=== PATIENT | female | born 1980 | race Caucasian/White ===

== ENCOUNTER 2016-10-29 18:46 | Emergency (ER) | payer MEDICAID ==
[~2016-10-29] VITALS: Ht 160 cm; Wt 68.0 kg
[2016-10-29 18:50] VITALS: BP_SYST 139
[2016-10-29] MEDS ORDERED: NACL 0.9% 1,000 ML IV ONE (19:00)
[2016-10-29] MEDS ORDERED: LORazepam 2 MG/ML VIAL IVP ONE (19:30)
[2016-10-29 19:36] LABS: BASOPHILS # (AUTO) 0.1 K/uL (0.0-0.2); BASOPHILS % (AUTO) 0.7 % (0.0-2.0); EOSINOPHILS # (AUTO) 0.2 K/uL (0.0-0.4); EOSINOPHILS % (AUTO) 2.4 % (0.0-4.0); HEMATOCRIT 42.4 % (36-48); HEMOGLOBIN 13.8 g/dL (12.0-16.0); LYMPHOCYTES # (AUTO) 2.6 K/uL (1.0-5.5); LYMPHOCYTES % (AUTO) 33.8 % (20.5-51.5); MEAN CORPUSCULAR HEMOGLOBIN 27 pg (27-31); MEAN CORPUSCULAR HGB CONC 32 % (32-36); MEAN CORPUSCULAR VOLUME 84 fL (79.0-98.0); MONOCYTES # (AUTO) 0.4 K/uL (0.0-1.0); MONOCYTES % (AUTO) 5.2 % (1.7-9.3); NEUTROPHILS # (AUTO) 4.3 K/uL (1.8-7.7); NEUTROPHILS % (AUTO) 57.9 % (40.0-70.0); PLATELET COUNT (AUTO) 307 K/uL (130-430); RED BLOOD CELL COUNT(AUTO) 5.07 MIL/uL (4.2-6.2); RED CELL DISTRIBUTION WIDTH 12.4 % (9.0-15.0); WHITE BLOOD COUNT (AUTO) 7.6 K/uL (4.8-10.8)
[2016-10-29] MEDS ORDERED: LORazepam 2 MG/ML VIAL (FOR ER USE) ONE (19:45)
[2016-10-29 19:58] LABS: BILIRUBIN,URINE NEGATIVE (NEGATIVE); BLOOD, URINE NEGATIVE (NEGATIVE); CLARITY/URINE CLEAR (CLEAR); COLOR,URINE YELLOW (YELLOW); GLUCOSE,URINE TRACE (NEGATIVE); KETONES,URINE NEGATIVE (NEGATIVE); LEUKOCYTE ESTERASE ,URINE 1+ (NEGATIVE); NITRITE, URINE NEGATIVE (NEGATIVE); PH,URINE 6.5 (5.0-8.0); PROTEIN URINE NEGATIVE (NEGATIVE); UROBILINOGEN,URINE 0.2 (0.2-1.0)
[2016-10-29 20:02] LABS: CALCIUM 9.8 mg/dL (8.4-11.0); CREATININE 0.94 mg/dL (0.55-1.30); POTASSIUM 3.3 mmol/L (3.5-5.1)
[2016-10-29 20:07] LABS: ALBUMIN 4.8 g/dL (3.4-4.8); TOTAL BILIRUBIN 0.2 mg/dL (0.0-1.0); TOTAL PROTEIN, SERUM 8.8 g/dL (6.4-8.3)
[2016-10-29 20:17] LABS: BACTERIA,URINE MODERATE /HPF (None Seen); RBC,URINE 0-3 /HPF (0-3)
[2016-10-29] MEDS ORDERED: KETOROLAC TROMETHAMINE 30 MG VIAL IVP ONE (20:30)
[2016-10-29] MEDS ORDERED: POTASSIUM CHLORIDE 10 MEQ TAB.PRT.SR PO ONE (20:30)
[2016-10-29 21:11] VITALS: BP_SYST 125
== END 2016-10-29 21:11 | disposition home or self-care (01) ==
LOC: SED 18:46
DX: R51 Headache (principal); R20.2 Paresthesia of skin; F41.9 Anxiety disorder, unspecified
CPT/HCPCS: 36415; 70450; 71010; 80053; 81000; 81025; 83605; 84484; 85025; 87040; 87086; 93005; 96361; 96374; 96375; 99285; J1885; J2060; J7030; 87186-TC

== ENCOUNTER 2020-06-18 11:54 | Emergency (ER) | payer MEDICAID, SELFPAY ==
[~2020-06-18] VITALS: Ht 160 cm; Wt 68.0 kg
[2020-06-18 11:55] VITALS: BP_SYST 99
[2020-06-18 13:15] VITALS: BP_SYST 99
== END 2020-06-18 13:15 | disposition home or self-care (01) ==
LOC: SED 11:54
DX: U07.1 COVID-19 (principal); M79.18 Myalgia, other site
CPT/HCPCS: 71045; 99284; C9803; U0003

== ENCOUNTER 2021-06-26 10:18 | Emergency (ER) | payer MEDICAID, SELFPAY ==
[~2021-06-26] VITALS: Ht 162.6 cm; Wt 83.9 kg
[2021-06-26 10:43] VITALS: BP_SYST 123
--- NOTE | 2021-06-26 10:43 | NUR ---
pt. came in with right sided abd pain, N/V, since friday and now has MENCHACA, rates pain 02/02, states can not keep anything down
--- NOTE | 2021-06-26 10:45 | NUR ---
ER in triage examining patient.
--- NOTE | 2021-06-26 10:55 | NUR ---
Patient to ER bed 7 to gown for evaluation. Side rails up. Report given to Trinh.
[2021-06-26] MEDS ORDERED: ONDANSETRON 4 MG ODT TAB PO ONE (11:00)
[2021-06-26] MEDS ORDERED: KETOROLAC TROMETHAMINE 60 MG/2 ML VIAL IM ONE (11:00)
--- NOTE | 2021-06-26 11:24 | NUR ---
PT A/OX4 AMBULATORY C/O R SIDE ABD PAIN RATED 9/10,N/V, since friday and now has MENCHACA. PT SEEN BY ED MD AND GAVE ORDERS. PT MEDICATED STAT, URINE DIP RESULTED, NEG. P
--- NOTE | 2021-06-26 11:26 | NUR ---
[address] SCAN
[2021-06-26 11:36] LABS: BASOPHILS # (AUTO) 0.1 K/uL (0.0-0.2); BASOPHILS % (AUTO) 0.6 % (0.0-2.0); EOSINOPHILS # (AUTO) 0.1 K/uL (0.0-0.4); EOSINOPHILS % (AUTO) 1.4 % (0.0-4.0); HEMATOCRIT 42.5 % (36-48); HEMOGLOBIN 14.5 g/dL (12.0-16.0); LYMPHOCYTES # (AUTO) 2.7 K/uL (1.0-5.5); LYMPHOCYTES % (AUTO) 26.8 % (20.5-51.5); MEAN CORPUSCULAR HEMOGLOBIN 29 pg (27-31); MEAN CORPUSCULAR HGB CONC 34 % (32-36); MEAN CORPUSCULAR VOLUME 86 fL (79.0-98.0); MONOCYTES # (AUTO) 0.4 K/uL (0.0-1.0); MONOCYTES % (AUTO) 4.4 % (1.7-9.3); NEUTROPHILS # (AUTO) 6.6 K/uL (1.8-7.7); NEUTROPHILS % (AUTO) 66.8 % (40.0-70.0); PLATELET COUNT (AUTO) 317 K/uL (130-430); RED BLOOD CELL COUNT(AUTO) 4.95 MIL/uL (4.2-6.2); RED CELL DISTRIBUTION WIDTH 12.8 % (9.0-15.0)
[2021-06-26 12:07] LABS: CALCIUM 8.5 mg/dL (8.4-11.0); CREATININE 0.66 mg/dL (0.55-1.30)
[2021-06-26 12:30] LABS: ALBUMIN 3.7 g/dL (3.4-4.8); TOTAL BILIRUBIN 0.3 mg/dL (0.0-1.0)
[2021-06-26 12:54] LABS: C-REACTIVE PROTEIN QUANT 0.2 mg/dL (0-0.5)
[2021-06-26] MEDS ORDERED: ONDA-8 TL (13:53)
[2021-06-26] MEDS ORDERED: IBUP-1969 PO (13:53)
--- NOTE | 2021-06-26 14:30 | NUR ---
PT REASSESSED BY ED MD AND CLERED TO BE DC HOME. PT VSS , NO PAIN , A/OX4 AMBULATORY, ACI AND RX PROVIDED AND EXPLAINED, PT VERB UNDERSTANDING.
[2021-06-26 16:26] VITALS: BP_SYST 125
== END 2021-06-26 16:26 | disposition home or self-care (01) ==
LOC: SED 10:18
DX: R10.11 Right upper quadrant pain (principal); R10.13 Epigastric pain
CPT/HCPCS: 36415; 74176; 76376; 80053; 81002; 81025; 82150; 83605; 83690; 84703; 85025; 86140; 96372; 99284; J1885; Q0162

== ENCOUNTER 2021-06-29 01:54 | Emergency (ER) | payer MEDICAID, SELFPAY ==
[~2021-06-29] VITALS: Ht 165.1 cm; Wt 88.9 kg
[~2021-06-29 01:54] MED LIST: IBUP-1969 PO; ONDA-8 TL
[2021-06-29 02:05] VITALS: BP_SYST 135
--- NOTE | 2021-06-29 02:32 | NUR ---
Patient to ER bed 5 to gown for evaluation. Side rails up. Report given to Julian GARCIA.
[2021-06-29] MEDS ORDERED: NACL 0.9% 1,000 ML IV ONE (02:45)
[2021-06-29 02:56] LABS: BASOPHILS # (AUTO) 0.1 K/uL (0.0-0.2); BASOPHILS % (AUTO) 0.6 % (0.0-2.0); EOSINOPHILS # (AUTO) 0.2 K/uL (0.0-0.4); EOSINOPHILS % (AUTO) 2.3 % (0.0-4.0); HEMATOCRIT 40.2 % (36-48); LYMPHOCYTES # (AUTO) 2.4 K/uL (1.0-5.5); LYMPHOCYTES % (AUTO) 26.8 % (20.5-51.5); MEAN CORPUSCULAR HEMOGLOBIN 30 pg (27-31); MEAN CORPUSCULAR HGB CONC 35 % (32-36); MEAN CORPUSCULAR VOLUME 86 fL (79.0-98.0); MONOCYTES # (AUTO) 0.4 K/uL (0.0-1.0); MONOCYTES % (AUTO) 4.2 % (1.7-9.3); NEUTROPHILS % (AUTO) 66.1 % (40.0-70.0); PLATELET COUNT (AUTO) 263 K/uL (130-430); RED BLOOD CELL COUNT(AUTO) 4.66 MIL/uL (4.2-6.2); RED CELL DISTRIBUTION WIDTH 13.4 % (9.0-15.0); WHITE BLOOD COUNT (AUTO) 9.1 K/uL (4.8-10.8)
[2021-06-29] MEDS ORDERED: MORPHINE 4 MG INJ. 4 MG/ML VIAL IVP ONE (03:00)
[2021-06-29] MEDS ORDERED: METOCLOPRAMIDE HCL 10 MG/2 ML VIAL IVP ONE (03:00)
[2021-06-29] MEDS ORDERED: PANTOPRAZOLE SODIUM 40 MG/VIAL (PROTONIX) IVP ONE (03:00)
--- NOTE | 2021-06-29 03:00 | NUR ---
PT CAME FROM HOME WITH ABDDOMIAL PAIN. PT IS ALERT ORIENTED X 4. PT IS AMBULATORY.
[2021-06-29 03:14] LABS: CALCIUM 8.4 mg/dL (8.4-11.0); CREATININE 0.69 mg/dL (0.55-1.30); POTASSIUM 3.9 mmol/L (3.5-5.1)
[2021-06-29 03:20] LABS: ALBUMIN 3.4 g/dL (3.4-4.8); TOTAL BILIRUBIN 0.4 mg/dL (0.0-1.0)
[2021-06-29] MEDS ORDERED: PRO40 PO (05:07)
[2021-06-29] MEDS ORDERED: TRAM50TA2 PO (05:07)
[2021-06-29] MEDS ORDERED: METO5TAB86 PO (05:07)
[2021-06-29 05:50] VITALS: BP_SYST 135
--- NOTE | 2021-06-29 05:52 | NUR ---
Patient given written and verbal discharge instructions and verbalizes understanding. JACQUELINE Vasquez MD discussed with patient the results and treatment provided. Patient in stable condition. IV catheter removed intact and dressing applied, no active bleeding. Rx of MEDICATIONS given. Patient educated on pain management and to follow up with PMD. Pain Scale 0/10. Opportunity for questions provided and answered. Medication side effect fact sheet provided.
[2021-06-29 06:53] LABS: BILIRUBIN,URINE NEGATIVE (NEGATIVE); BLOOD, URINE NEGATIVE (NEGATIVE); CLARITY/URINE CLEAR (CLEAR); COLOR,URINE YELLOW (YELLOW); GLUCOSE,URINE NEGATIVE (NEGATIVE); KETONES,URINE NEGATIVE (NEGATIVE); LEUKOCYTE ESTERASE ,URINE NEGATIVE (NEGATIVE); NITRITE, URINE NEGATIVE (NEGATIVE); PROTEIN URINE NEGATIVE (NEGATIVE); UROBILINOGEN,URINE 0.2 (0.2-1.0)
== END 2021-06-29 05:50 | disposition home or self-care (01) ==
LOC: SED 01:54
DX: K29.70 Gastritis, unspecified, without bleeding (principal); Z79.899 Other long term (current) drug therapy
CPT/HCPCS: 36415; 80053; 81003; 83690; 85025; 96361; 96374; 96375; 99284; C9113; J2270; J2765; J7030

== ENCOUNTER 2022-05-05 17:25 | Emergency (ER) | payer MEDICAID ==
[~2022-05-05] VITALS: Ht 165.1 cm; Wt 77.1 kg
[2022-05-05 17:25] VITALS: BP_SYST 113
[~2022-05-05 17:25] MED LIST changes: +GUAI100S14 PO; +METO5TAB86 PO; +PRO40 PO; +TRAM50TA2 PO
--- NOTE | 2022-05-05 17:25 | NUR ---
Patient triaged and placed in waiting room. VSS and patient appears in no acute distress at this time. Accompanied by SELF, awaiting available bed, and MD notified of need for MSE.
--- NOTE | 2022-05-05 19:07 | NUR ---
ER examining patient.
[2022-05-05] MEDS ORDERED: IBUPROFEN 800 MG TABLET PO ONE (19:15)
[2022-05-05] MEDS ORDERED: HYDROcodone/ACETAMIN 10-325 MG TAB PO ONE (19:15)
[2022-05-05 19:53] LABS: BASOPHILS % (AUTO) 0.5 % (0.0-2.0); EOSINOPHILS # (AUTO) 0.3 K/uL (0.0-0.4); EOSINOPHILS % (AUTO) 3.3 % (0.0-4.0); HEMATOCRIT 39.6 % (36-48); HEMOGLOBIN 13.5 g/dL (12.0-16.0); LYMPHOCYTES # (AUTO) 3.2 K/uL (1.0-5.5); LYMPHOCYTES % (AUTO) 36.8 % (20.5-51.5); MEAN CORPUSCULAR HEMOGLOBIN 30 pg (27-31); MEAN CORPUSCULAR HGB CONC 34 % (32-36); MEAN CORPUSCULAR VOLUME 87 fL (79.0-98.0); MONOCYTES # (AUTO) 0.6 K/uL (0.0-1.0); MONOCYTES % (AUTO) 6.8 % (1.7-9.3); NEUTROPHILS # (AUTO) 4.6 K/uL (1.8-7.7); NEUTROPHILS % (AUTO) 52.6 % (40.0-70.0); PLATELET COUNT (AUTO) 377 K/uL (130-430); RED BLOOD CELL COUNT(AUTO) 4.54 MIL/uL (4.2-6.2); RED CELL DISTRIBUTION WIDTH 13.4 % (9.0-15.0); WHITE BLOOD COUNT (AUTO) 8.7 K/uL (4.8-10.8)
[2022-05-05 20:02] LABS: ANION GAP 10 (5-15); CALCIUM 8.4 mg/dL (8.4-11.0); CHLORIDE 107 mmol/L (98-107); CREATININE 0.59 mg/dL (0.55-1.30); GLUCOSE 107 mg/dL (70-99); UREA NITROGEN, BLOOD 13 mg/dL (8-21)
[2022-05-05 20:06] LABS: ALANINE AMINOTRANSFERASE 17 U/L (12-78); ALBUMIN 4.1 g/dL (3.4-4.8); ASPARTATE AMINOTRANSFERASE 12 U/L (10-37); C-REACTIVE PROTEIN QUANT < 0.2 mg/dL (0-0.5); TOTAL BILIRUBIN 0.3 mg/dL (0.0-1.0); URIC ACID 4.4 mg/dL (2.4-7.0)
[2022-05-05 20:09] LABS: GFR AFRICAN AMERICAN 145 mL/min (>90)
[2022-05-05] MEDS ORDERED: IBUP-1969 PO (20:36)
[2022-05-05] MEDS ORDERED: HYDR-3917 PO (20:36)
--- NOTE | 2022-05-05 21:01 | NUR ---
Patient given written and verbal discharge instructions in the WR and verbalizes understanding. ER MD discussed with patient the results and treatment provided. Patient in stable condition. ID arm band removed. Rx of [place] and Ibuprofen a given. Patient educated on pain management and to follow up with PMD. Pain Scale 4/10. Opportunity for questions provided and answered. Medication side effect fact sheet provided.
[2022-05-05 21:04] VITALS: BP_SYST 116
== END 2022-05-05 21:04 | disposition home or self-care (01) ==
LOC: SED 17:25
DX: M54.2 Cervicalgia (principal); Z79.899 Other long term (current) drug therapy
CPT/HCPCS: 36415; 72040-TC; 80053; 81025; 84550; 84703; 85025; 86140; 99284

== ENCOUNTER 2022-05-08 08:13 | Emergency (ER) | payer MEDICAID ==
[~2022-05-08] VITALS: Ht 165.1 cm; Wt 77.1 kg
[~2022-05-08 08:13] MED LIST changes: +HYDR-3917 PO
[2022-05-08 08:30] VITALS: BP_SYST 110
[2022-05-08] MEDS ORDERED: ONDANSETRON 4 MG ODT TAB PO ONE (08:45)
[2022-05-08] MEDS ORDERED: MAG HYDROX/AL HYDROX/SIMETH 30 ML, DICYCLOMINE HCL 20 MG, LIDOCAINE VISCOUS 2% 15ML (PO... PO ONE ×3 (08:45)
[2022-05-08 09:36] LABS: BILIRUBIN,URINE NEGATIVE (NEGATIVE); BLOOD, URINE 3+ (NEGATIVE); COLOR,URINE YELLOW (YELLOW); GLUCOSE,URINE NEGATIVE (NEGATIVE); KETONES,URINE NEGATIVE (NEGATIVE); LEUKOCYTE ESTERASE ,URINE TRACE (NEGATIVE); NITRITE, URINE POSITIVE (NEGATIVE); PH,URINE 7.5 (5.0-8.0); PROTEIN URINE NEGATIVE (NEGATIVE); UROBILINOGEN,URINE 0.2 (0.2-1.0)
[2022-05-08 09:40] LABS: CLARITY/URINE SLIGHTLY HAZY (CLEAR)
[2022-05-08 09:44] LABS: BACTERIA,URINE MODERATE /HPF (None Seen)
[2022-05-08] MEDS ORDERED: OMEP20TA20 PO (10:35)
[2022-05-08] MEDS ORDERED: ANT30 PO (10:36)
[2022-05-08] MEDS ORDERED: ONDA-8 TL (10:36)
[2022-05-08 10:38] VITALS: BP_SYST 115
== END 2022-05-08 10:42 | disposition home or self-care (01) ==
LOC: SED 08:13
DX: K29.70 Gastritis, unspecified, without bleeding (principal); Z79.899 Other long term (current) drug therapy
CPT/HCPCS: 99283; 81000; 87086; 81025; Q0162; J2001

== ENCOUNTER 2022-05-27 14:17 | Emergency (ER) | payer MEDICAID ==
[~2022-05-27] VITALS: Ht 165.1 cm; Wt 81.6 kg
[~2022-05-27 14:17] MED LIST changes: +ANT30 PO; +OMEP20TA20 PO
[2022-05-27 14:30] VITALS: BP_SYST 110
--- NOTE | 2022-05-27 14:30 | NUR ---
Patient triaged and placed in waiting room. VSS and patient appears in no acute distress at this time. Accompanied by , awaiting available bed, and MD notified of need for MSE.
--- NOTE | 2022-05-27 15:31 | NUR ---
ER DR. BOSTON EXAMINING PT IN TRIAGE
[2022-05-27] MEDS ORDERED: METOCLOPRAMIDE HCL 10 MG/2 ML VIAL IM ONE (15:45)
[2022-05-27] MEDS ORDERED: KETOROLAC TROMETHAMINE 30 MG VIAL IM ONE (15:45)
[2022-05-27] MEDS ORDERED: DIPHENHYDRAMINE HCL 50 MG CAPSULE PO ONE (16:15)
--- NOTE | 2022-05-27 17:10 | NUR ---
PT ELOPED FROM ER WAITING AREA WITH
== END 2022-05-27 15:31 | disposition left against medical advice (07) ==
LOC: SED 14:17
DX: R51.9 Headache, unspecified (principal); R11.2 Nausea with vomiting, unspecified; Z79.899 Other long term (current) drug therapy
CPT/HCPCS: 99284; 96372; Q0163; J1885; J2765